=== PATIENT | male | born 1950 ===

== ENCOUNTER 2025-05-30 09:48 | Inpatient (IN) | payer OTHER ==
[~2025-05-30] VITALS: Ht 167.6 cm; Wt 66.2 kg
[2025-05-30] MEDS ORDERED: METFORMIN HCL500 M3 PO (09:58)
[2025-05-30] MEDS ORDERED: ROSUVASTATIN CA20 MG PO (09:59)
[2025-05-30] MEDS ORDERED: FARXIGA10 MG PO (09:59)
[2025-05-30] MEDS ORDERED: COZAAR50 MG PO (09:59)
[2025-05-30] MEDS ORDERED: EZETIMIBE10 MG PO (09:59)
[2025-05-30] MEDS ORDERED: MULTIPLE VITAM1 EAC2 PO (10:00)
[2025-05-30] MEDS ORDERED: PLAVIX75 MG PO (10:00)
[2025-05-30 10:01] VITALS: BP 134/83
[2025-05-30 11:25] LABS: BASO % 0.4 % (0.1-1.2); EOS # 0.10 (0.04-0.54); EOS % 1.3 % (0.7-7.0); LYMPH # 1.55 (1.18-3.74); LYMPH % 19.4 % (19.3-53.1); MEAN PLATELET VOLUME 11.00 fl (9.4-12.4); MONO # 0.75 (0.24-0.82); MONO % 9.4 % (4.7-12.5); NEUT # 5.53 (1.56-6.13); NEUT % 69.1 % (34.0-71.1); RED CELL DISTRIBUTION WIDTH 12.5 % (11.6-14.4)
[2025-05-30 11:27] LABS: URINE APPEARANCE Clear; URINE BILIRRUBIN Negative (NEGATIVE); URINE BLOOD Negative; URINE COLOR Yellow; URINE KETONE Negative (NEGATIVE); URINE LEUKOCYTE Negative; URINE NITRATE Negative; URINE PROTEIN Negative (NEGATIVE); URINE UROBILINOGEN 0.2 E.U./dl
[2025-05-30 11:29] LABS: URINE EPITHELIAL CELLS 1.8 uL (0.0-38.8); URINE RBC 2.4 uL (0.0-20.8); URINE WBC 1.9 uL (0.0-23.2)
[2025-05-30 11:40] LABS: URINE BACTERIA 1.1 uL (0.0-1933); URINE CAST 0.14 uL (0.0-1.40); URINE GLUCOSE >=1000 MG/DL (NEGATIVE)
[2025-05-30 11:45] LABS: INR 1.05
[2025-05-30 12:52] LABS: BUN CREA RATIO 25.0 (7.0-25.0); CREATININE SERUM 0.64 mg/dL (0.70-1.30); GFR 121.27; GLUCOSE FASTING 86.0 mg/dL (65-100); OSMOLALITY SERUM 287.0 MOSM/KG (275-295)
[2025-06-06] MEDS ORDERED: ENOXAPARIN SODIUM 40 MG/0.4 ML SYRINGE SUBCUTANEO ONE (09:25)
[2025-06-06] MEDS ORDERED: METRONIDAZOLE/SODIUM CHLORIDE 500 MG/100 ML PIGGYBACK IV ONE (09:26)
[2025-06-06] MEDS ORDERED: CEFTRIAXONE SODIUM 2,000 MG VIAL ONE (09:26)
[2025-06-06] MEDS ORDERED: SUGAMMADEX SODIUM 200 MG/2 ML VIAL IV ONE (13:58)
[2025-06-06] MEDS ORDERED: INSULIN LISPRO 1,000 UNIT/10 ML UNITS SUBCUTANEO PRN (14:30)
[2025-06-06] MEDS ORDERED: DEXTROSE 50 % IN WATER 0.5 G/ML DISP.SYRIN IV PRN (14:30)
[2025-06-06] MEDS ORDERED: 0.9 % SODIUM CHLORIDE 1,000 ML IV SCH (14:30)
[2025-06-06] MEDS ORDERED: ENALAPRILAT DIHYDRATE 1.25 MG/ML VIAL IV PRN (14:30)
[2025-06-06] MEDS ORDERED: MORPHINE SULFATE 4 MG/ML VIAL IV PRN (14:30)
[2025-06-06] MEDS ORDERED: ONDANSETRON HCL 2 MG/ML VIAL IV SCH (17:00)
[2025-06-06] MEDS ORDERED: POLYETHYLENE GLYCOL 3350 17 GM BLIST.PACK PO SCH (17:00)
[2025-06-06] MEDS ORDERED: CELECOXIB 200 MG CAPSULE PO SCH (17:00)
[2025-06-06] MEDS ORDERED: ONDANSETRON HCL 2 MG/ML VIAL ONE (17:54)
[2025-06-06] MEDS ORDERED: ONDANSETRON HCL 2 MG/ML VIAL IV ONE (18:00)
[2025-06-07 01:00] VITALS: BP 109/63; O2SAT 95
[2025-06-07 08:00] VITALS: BP 104/62; O2SAT 94
[2025-06-07] MEDS ORDERED: ENOXAPARIN SODIUM 40 MG/0.4 ML SYRINGE SUBCUTANEO SCH (09:00)
[2025-06-07] MEDS ORDERED: PANTOPRAZOLE SODIUM 40 MG TABLET.DR PO SCH (09:00)
[2025-06-07 16:00] VITALS: BP 107/67; O2SAT 93
[2025-06-08] VITALS: BP 126/75; O2SAT 93
[2025-06-08 08:00] VITALS: BP 111/63; O2SAT 95
[2025-06-08] MEDS ORDERED: POLY119PG PO (09:49)
== END 2025-06-08 14:33 | disposition home or self-care (01) | DRG 355 ==
LOC: O/R 06-06 08:00 → SURG 06-06 08:00 → SURH 06-06 09:15 → SURG 06-06 22:41
PROVIDERS: ADMIT Surgery; ATTEND Surgery
PROC: 0WUF0JZ Supplement Abdominal Wall with Synthetic Substitute, Open Approach (ICD-10-PCS; 2025-06-06)
PROC: 0KRL07Z Replacement of Left Abdomen Muscle with Autologous Tissue Substitute, Open Approach (ICD-10-PCS; 2025-06-06)
PROC: 0KRK07Z Replacement of Right Abdomen Muscle with Autologous Tissue Substitute, Open Approach (ICD-10-PCS; 2025-06-06)
PROC: 0WQF4ZZ Repair Abdominal Wall, Percutaneous Endoscopic Approach (ICD-10-PCS; principal; 2025-06-06 09:15)
DX: K43.2 Incisional hernia without obstruction or gangrene (principal)